=== PATIENT | female | born 1995 | race Caucasian/White ===

== ENCOUNTER 2017-06-30 18:03 | Emergency (ER) | payer BC ==
--- NOTE | 2017-06-30 19:56 | EDM.PDOC ---
ED HPI GENERAL MEDICAL PROBLEM - General Chief Complaint: General Stated Complaint: PT HAS FLU SYMPTOMS Time Seen by Provider: 06/30/17 19:56 Source of Information: Reports: Patient History Limitations: Reports: No Limitations - History of Present Illness INITIAL COMMENTS - FREE TEXT/NARRATIVE: HISTORY AND PHYSICAL: History of present illness: [Patient comes to the emergency room complaining of flu-like symptoms. She was diagnosed with influenza yesterday at [facility] in [place] and was prescribed Tamiflu. She has taken 3 doses. This morning she felt that she had improved and she rested on and off through the day. She woke up at 3:30 this afternoon to get ready for work when she felt very dizzy and lightheaded and felt that all of her symptoms resumed. She has had a mild fever on and off for the past 24 hours as well as body aches, headaches, and generalized malaise. She denies nausea vomiting diarrhea and abdominal pain. Reports a history of asthma but has run out of her inhaler. She's noticed some mild wheezing on and off for the past 24 hours as well. Requests a refill of an inhaler.] Review of systems: As per history of present illness and below otherwise all systems reviewed and negative. Past medical history: As per history of present illness and as reviewed below otherwise noncontributory. Surgical history: As per history of present illness and as reviewed below otherwise noncontributory. Social history: No reported history of drug or alcohol abuse. Family history: As per history of present illness and as reviewed below otherwise noncontributory. Physical exam: HEENT: Atraumatic, normocephalic. TMs are pearly rouse. Nares are patent. Oral mucous membranes are pink and moist. No tonsillar swelling erythema or exudate. Neck supple no lymphadenopathy appreciated. Lungs: Clear to auscultation, breath sounds equal bilaterally. Slight wheeze appreciated to the left lower lung base. Heart: S1S2, regular rate and rhythm. Abdomen: Soft, nondistended, nontender. Negative for masses, guarding or rebound. Pelvis: Stable nontender. Genitourinary: Deferred. Rectal: Deferred. Extremities: Atraumatic. Neurovascular unremarkable. Neuro: Awake, alert, oriented. Motor and sensory unremarkable throughout. Exam nonfocal. Impression: [Influenza wheeze hx of asthma] Plan: [Rx for albuterol inhaler sent to [place] pharmacy. Discussed with patient that her symptoms of influenza will continue for several more days and that Tamiflu will not actually your influenza. Encouraged her to continue pushing fluids, get plenty of rest, avoiding dehydration and managing fevers and discomfort with Tylenol alternating with ibuprofen. Encouraged her to follow-up with her PCP. Strict return precautions are reviewed with the patient. She is in agreement with today's plan. All of her questions are answered and concerns are addressed. ] Definitive disposition and diagnosis as appropriate pending reevaluation and review of above. generalized Pain Score (Numeric/FACES): 5 - Related Data Allergies Allergy/AdvReac Type Severity Reaction Status Date / Time No Known Allergies Allergy Verified 06/30/17 19:33 Home Meds: Home Meds Albuterol [Ventolin HFA] 1 puff INH Q4H PRN 30 Days #1 puff 06/30/17 [Rx] Control 06/30/17 [History] ED ROS GENERAL - Review of Systems Review Of Systems: ROS reveals no pertinent complaints other than HPI. ED EXAM, GENERAL - Physical Exam Exam: See Below Course - Vital Signs Last Recorded V/S: Last Vital Signs Temp 99.7 F 06/30/17 19:29 Pulse 106 H 06/30/17 19:29 Resp 19 06/30/17 19:29 BP 113/60 06/30/17 19:29 Pulse Ox 97 06/30/17 19:29 Departure - Departure Time of Disposition: 20:20 Disposition: Home, Self-Care 01 Condition: Good Clinical Impression: Influenza, Wheezing, History of asthma - Discharge Information Prescriptions: Albuterol [Ventolin HFA] 1 puff INH Q4H PRN 30 Days #1 puff PRN Reason: Wheezing Instructions: Asthma, Adult, Influenza, Adult, [id number] Referrals: PCP,None [Primary Care Provider] - Forms: ED Department Discharge Additional Instructions: The following information is given to patients seen in the emergency department who are being discharged to home. This information is to outline your options for follow-up care. We provide all patients seen in our emergency department with a follow-up referral. The need for follow-up, as well as the timing and circumstances, are variable depending upon the specifics of your emergency department visit. If you don't have a primary care physician on staff, we will provide you with a referral. We always advise you to contact your personal physician following an emergency department visit to inform them of the circumstance of the visit and for follow-up with them and/or the need for any referrals to a consulting specialist. The emergency department will also refer you to a specialist when appropriate. This referral assures that you have the opportunity for follow-up care with a specialist. All of these measure are taken in an effort to provide you with optimal care, which includes your follow-up. Under all circumstances we always encourage you to contact your private physician who remains a resource for coordinating your care. When calling for follow-up care, please make the office aware that this follow-up is from your recent emergency room visit. If for any reason you are refused follow-up, please contact the [facility] emergency department at and asked to speak to the emergency department charge nurse. [facility] [address] [place] [id number] Follow-up with your primary care provider at the clinic listed above in the next 48-72 hours. Stay well hydrated, get plenty of rest. Robitussin or Delsym as needed for cough. Phenergan with codeine cough syrup at bedtime only. Alternate Tylenol with ibuprofen as needed for fever or discomfort. You may return to work as scheduled on the 12. Return to ER as needed as discussed.
== END 2017-06-30 21:41 | disposition home or self-care (01) ==
LOC: MW.ED 18:03
DX: J11.1 Influenza due to unidentified influenza virus with other respiratory manifestations (principal); J45.909 Unspecified asthma, uncomplicated
CPT/HCPCS: 99282; 99283